=== PATIENT | female | born 1995 | race Caucasian/White ===

== ENCOUNTER 2017-08-10 01:16 | Emergency (ER) | payer SELFPAY ==
[~2017-08-10] VITALS: Ht 165.1 cm; Wt 63.5 kg
[~2017-08-10 01:16] MED LIST: LESSTAB PO; MELA5CAP2 PO; MULT1CHW33; PROM25SU8 PO; VESI10TA4 PO
[2017-08-10 01:22] VITALS: BP 126/69; PULSE 111; RESP 22; TEMP 98.4; O2SAT 98
[2017-08-10] MEDS ORDERED: LESSTAB PO (01:41)
[2017-08-10 01:48] VITALS: TEMP 98.4
--- NOTE | 2017-08-10 01:50 | PD ---
HPI Chief Complaint: Cold / Flu Symptoms Time Seen by Provider: 01:49 Travel History International Travel<30 days: No Contact w/Intl Traveler<30days: No History of Present Illness HPI patient is a 21-year-old female otherwise healthy presents emergency Department with her father for evaluation of cough congestion body aches and chills and sore throat. The patient states she's been having symptoms for the past 36-48 hours. She is concerned because her father who is with her today presented to his primary care physician and several tests were ordered the patient was started empirically on antibiotics. Her father is not sure as to what his diagnosis was at warranted antibiotics. She states that she was starting to feel better today but then when she went to go to bed tonight she started coughing and was not able to sleep. She denies any chest pain rash shortness of breath nausea vomiting abdominal pain. PFSH Past Medical History Medical History: Denies Significant Hx Developmental Delay: No Diminished Hearing: No Genitourinary: Yes (CYSTOSCOPY , BLADDER INFECTION, UTI ) Reproductive: Yes (YEAST INFECTION ) Immunizations Current: Yes Tetanus Vaccination: Never Vaccinated ?: Unknown LMP: 08/10/17 : 0 Social History Alcohol Use: Yes (OCC) Tobacco Use: No Substance Use: No (DENIES ) Allergies-Medications (Allergen,Severity, Reaction): Coded Allergies: amoxicillin (Unverified Allergy, Mild, 04/12/17) miconazole (Unverified Allergy, Unknown, SEVERE BURNING SENSATION , ) nitrofurantoin (Unverified Adverse Reaction, Mild, nausea, 04/12/17) Reported Meds & Prescriptions Reported Meds & Active Scripts Active Tessalon Perles (Benzonatate) 100 Mg Cap 100 Mg PO TID PRN Azithromycin 250 Mg Tab 250 Mg PO DIRECTED Take 2 tabs (500 mg) on day 1 then 1 tab daily x 4 days. Reported Lessina (Levonorgestrel-Ethinyl Estradiol) 0.1-20 mg-mcg Tab 1 Tab PO DAILY Review of Systems Except as stated in HPI: all other systems reviewed are Neg Physical Exam Narrative GENERAL: Well-developed well-nourished no obvious distress SKIN: Focused skin assessment warm/dry. No rash HEAD: Atraumatic. Normocephalic. EYES: Pupils equal and round. No scleral icterus. No injection or drainage. ENT: No nasal bleeding or discharge. Mucous membranes pink and moist. TMs clear bilaterally, oropharynx that shows some mild erythema without any edema nor cobblestoning. The patient tonsils are 1+ and not inflamed. NECK: Trachea midline. No JVD. No lymphadenopathy CARDIOVASCULAR: Regular rate and rhythm. No murmur appreciated. RESPIRATORY: No accessory muscle use. Clear to auscultation. Breath sounds equal bilaterally. GASTROINTESTINAL: Abdomen soft, non-tender, nondistended. Hepatic and splenic margins not palpable. MUSCULOSKELETAL: No obvious deformities. No clubbing. No cyanosis. No edema. NEUROLOGICAL: Awake and alert. No obvious cranial nerve deficits. Motor grossly within normal limits. Normal speech. PSYCHIATRIC: Appropriate mood and affect; insight and judgment normal. Data Data Last Documented VS Vital Signs Date Time Temp Pulse Resp B/P (MAP) Pulse Ox O2 Delivery O2 Flow Rate FiO2 08/10/17 03:24 100 20 119/74 (89) 99 08/10/17 01:52 98.4 Orders Orders Influenzae A/B Antigen (08/10/17 01:49) Group A Rapid Strep Screen (08/10/17 01:49) Chest, Pa & Lat (08/10/17 ) Benzonatate (Tessalon) (08/10/17 02:15) Strep Culture (Group A) (08/10/17 02:00) Ed Discharge Order (08/10/17 03:00) MDM Medical Decision Making Medical Screen Exam Complete: Yes Emergency Medical Condition: Yes Differential Diagnosis Influenza, pneumonia, URI, severe bacterial illness unlikely Narrative Course patient roomed in the emergency department, chest x-ray negative, rapid flu and strep negative. She appears well and nontoxic. Discussed symptomatic management, start azithromycin after 12-14 days of illness total to prevent superimposed bacterial infection, she is stable for discharge. Discussed return to ED criteria. Diagnosis Primary Impression: Flu-like symptoms Med/Other Pt SpecificInfo: Prescription(s) given Scripts Benzonatate (Tessalon Perles) 100 Mg Cap 100 MG PO TID Y for COUGH, #21 CAP 0 Refills Prov: Gabe Ramirez MD 08/10/17 Azithromycin (Azithromycin) 250 Mg Tab 250 MG PO DIRECTED for Infection, #6 TAB 0 Refills Take 2 tabs (500 mg) on day 1 then 1 tab daily x 4 days. Prov: Gabe Ramirez MD 08/10/17 Disposition: 01 DISCHARGE HOME Condition: Stable Gabe Ramirez MD Aug 10, 2017 01:50
[2017-08-10 01:52] VITALS: BP 126/69; PULSE 101; RESP 20; TEMP 98.4; O2SAT 96
[2017-08-10] MEDS ORDERED: BENZONATATE 100 MG CAP PO ONE (02:15)
--- NOTE | 2017-08-10 02:47 | RADRPT ---
EXAM DATE/TIME: 08/10/2017 01:51 [facility] COMPARISON: No previous studies available for comparison. INDICATIONS : Cough. MEDICAL HISTORY : None. SURGICAL HISTORY : None. ENCOUNTER: Initial ACUITY: 3 days PAIN SCORE: 0/10 LOCATION: Bilateral chest FINDINGS: PA and lateral views of the chest demonstrate the lungs to be symmetrically aerated without evidence of mass, infiltrate or effusion. The cardiomediastinal contours are unremarkable. Osseous structure s are intact. CONCLUSION: The lungs are clear. Lev Farmer MD on August 10, 2017 at 2:45 Board Certified Radiologist. This report was verified electronically.
[2017-08-10] MEDS ORDERED: AZIT250T3 PO (03:00)
[2017-08-10] MEDS ORDERED: BENZ100 PO (03:00)
[2017-08-10 03:24] VITALS: BP 119/74
== END 2017-08-10 03:25 | disposition home or self-care (01) ==
LOC: PHED 01:16
DX: R05 Cough (principal)
CPT/HCPCS: 71020; 87081; 87804; 87880; 99284

== ENCOUNTER 2017-12-31 20:13 | Emergency (ER) | payer SELFPAY ==
[~2017-12-31] VITALS: Ht 165.1 cm; Wt 62.8 kg
[~2017-12-31 20:13] MED LIST changes: +AZIT250T3 PO; +BENZ100 PO; -MELA5CAP2 PO; -MULT1CHW33; -PROM25SU8 PO; -VESI10TA4 PO
[2017-12-31 20:16] VITALS: BP 135/69; PULSE 96; RESP 16; TEMP 99.2; O2SAT 100
[2017-12-31] MEDS ORDERED: ZANT150T2 PO (21:25)
[2017-12-31] MEDS ORDERED: PANT20 PO (21:25)
--- NOTE | 2017-12-31 21:25 | PD ---
HPI Chief Complaint: GI Complaint Time Seen by Provider: 21:18 Travel History International Travel<30 days: No Contact w/Intl Traveler<30days: No History of Present Illness HPI Patient presents with concerns of GI symptoms. States over the last 2 weeks after meals she feels a fullness in her epigastric region with an increased urge to belch. Denies any acid brash or chest pain. Worse at night with a mild cough. Today she reports an episode upon expiration of gurgling and fear that something was in her lungs. States that resolved with active belch. Denies any pain. Symptoms lasted for several hours. Denies . No new rash. Denies chest pain shortness of breath urinary or bowel symptoms. Patient is symptom-free at this time. PFSH Past Medical History Developmental Delay: No Diminished Hearing: No Genitourinary: Yes (CYSTOSCOPY , BLADDER INFECTION, UTI ) Reproductive: Yes (YEAST INFECTION ) Immunizations Current: Yes Tetanus Vaccination: Unknown Influenza Vaccination: No ?: Unknown LMP: 12/28/17 : 0 Social History Alcohol Use: Yes (OCC) Tobacco Use: No Substance Use: No Allergies-Medications (Allergen,Severity, Reaction): Coded Allergies: amoxicillin (Unverified Allergy, Mild, 12/31/17) miconazole (Unverified Allergy, Unknown, SEVERE BURNING SENSATION , 12/31/17 ) nitrofurantoin (Unverified Adverse Reaction, Mild, nausea, 12/31/17) Reported Meds & Prescriptions Reported Meds & Active Scripts Active Zantac (Ranitidine HCl) 150 Mg Tab 150 Mg PO BID Protonix (Pantoprazole Sodium) 20 Mg Tab 20 Mg PO BID Reported Lessina (Levonorgestrel-Ethinyl Estradiol) 0.1-20 mg-mcg Tab 1 Tab PO DAILY Review of Systems General / Constitutional: No: Fever Eyes: No: Visual changes HENT: No: Headaches Cardiovascular: No: Chest Pain or Discomfort Respiratory: No: Shortness of Breath Gastrointestinal: Positive: Indigestion, No: Abdominal Pain Genitourinary: No: Dysuria Musculoskeletal: No: Pain Skin: No Rash Neurologic: No: Weakness Psychiatric: No: Depression Endocrine: No: Polydipsia Hematologic/Lymphatic: No: Easy Bruising Physical Exam Narrative GENERAL: Well-nourished, well-developed patient. SKIN: Focused skin assessment warm/dry. HEAD: Normocephalic. EYES: No scleral icterus. No injection or drainage. NECK: Supple, trachea midline. No JVD or lymphadenopathy. CARDIOVASCULAR: Regular rate and rhythm without murmurs, gallops, or rubs. RESPIRATORY: Breath sounds equal bilaterally. No accessory muscle use. GASTROINTESTINAL: Abdomen soft, non-tender, nondistended. MUSCULOSKELETAL: No cyanosis, or edema. BACK: Nontender without obvious deformity. No CVA tenderness. Data Data Last Documented VS Vital Signs Date Time Temp Pulse Resp B/P (MAP) Pulse Ox O2 Delivery O2 Flow Rate FiO2 12/31/17 20:58 20 12/31/17 20:16 99.2 96 135/69 (91) 100 Orders Orders Pantoprazole (Protonix) (12/31/17 21:30) Famotidine (Pepcid) (12/31/17 21:30) [facility] Medical Decision Making Medical Screen Exam Complete: Yes Emergency Medical Condition: Yes Differential Diagnosis Gastritis, GERD, esophagitis, aspiration Narrative Course Assessment plan was discussed with patient and father at bedside. Diagnosis Primary Impression: Gastritis Qualified Codes: K29.00 - Acute gastritis without bleeding Patient Instructions: General Instructions Additional Instructions: Encouraged a high-fiber bland brat diet. Encouraged to avoid aggravating factors reflux including but not limited to alcohol tobacco late and large meals spicy meals and weight. Encouraged to follow-up with PCP. Return to emerge from with any onset of new symptoms. Med/Other Pt SpecificInfo: Prescription(s) given Scripts Ranitidine (Zantac) 150 Mg Tab 150 MG PO BID for Reduce Stomach Acid, #60 TAB 0 Refills Prov: García Purcell MD 12/31/17 Pantoprazole (Protonix) 20 Mg Tab 20 MG PO BID for Reflux, #30 TAB 0 Refills Prov: García Purcell MD 12/31/17 Disposition: 01 DISCHARGE HOME Condition: Good García Purcell MD December 31, 2017 21:25
[2017-12-31] MEDS ORDERED: FAMOTIDINE 20 MG TAB PO ONE (21:30)
[2017-12-31] MEDS ORDERED: PANTOPRAZOLE SOD 40 MG DELAYED RELEASE TAB PO ONE (21:30)
[2017-12-31 21:45] VITALS: BP 127/75
== END 2017-12-31 21:46 | disposition home or self-care (01) ==
LOC: PHED 20:13
DX: K29.00 Acute gastritis without bleeding (principal)
CPT/HCPCS: 99283